=== PATIENT | female | born 1995 | race Caucasian/White ===

== ENCOUNTER 2019-08-13 18:36 | Inpatient (IN) ==
[2019-08-13 19:51] LABS: Apearance,Urine CLEAR (Clear); Bilirubin,Urine Negative (Negative); Blood, Urine Negative (Negative); Glucose,Urine (UA) Negative (Negative); Ketones,Urine Negative (Negative); Nitrite,Urine Negative (Negative); Protein,Urine Negative; RBC,Urine <1 /HPF (0-4); Squamous Epithelial Cell,Urine Occasional /HPF (0-10); Urine Color Straw (Yellow); Urine Specific Gravity 1.004 (1.001-1.035); Urine Urobilinogen < 2.0 EU/DL (0.2-1.0); WBC,Urine 2 /HPF (0-6)
[2019-08-13] MEDS: LACTATED RINGERS 1,000 ML IV SCH (20:22)
[2019-08-13] MEDS ORDERED: ALUMINUM/MAGNES/SIMETH MAX STR 30 ML UDCUP PO PRN (20:24)
[2019-08-13] MEDS ORDERED: BUTORPHANOL 2 MG/ML VIAL IV PRN (21:54)
[2019-08-13] MEDS ORDERED: ONDANSETRON 4 MG/2 ML VIAL IV PRN (21:54)
[2019-08-13] MEDS ORDERED: NALOXONE 0.4 MG/ML VIAL IV PRN (21:56)
[2019-08-13] MEDS ORDERED: hydrOXYzine HCL 25 MG/1 ML VIAL IM PRN (21:56)
[2019-08-13] MEDS ORDERED: CITRIC ACID/SODIUM CITRATE 30 ML UDCUP PO ONE (21:56)
[2019-08-13] MEDS ORDERED: FAMOTIDINE 20 MG/2 ML VIAL IV ONE (21:56)
[2019-08-13] MEDS ORDERED: PROMETHAZINE 25 MG/1 ML VIAL IM ONE (21:56)
[2019-08-13] MEDS ORDERED: ePHEDrine 50 MG/ML AMP IV PRN (21:56)
[2019-08-13] MEDS ORDERED: LACTATED RINGERS 1,000 ML IV ONE (21:56)
[2019-08-13] MEDS ORDERED: diphenhydrAMINE 50 MG/1 ML VIAL IV PRN ×2 (21:56)
[2019-08-13] MEDS ORDERED: LACTATED RINGERS 1,000 ML IV SCH (22:00)
[2019-08-13] MEDS ORDERED: fentaNYL 2 MCG/ROPIV 0.2% EPID 100 ML EPIDURAL SCH (22:00)
[2019-08-13 22:24] LABS: Basophils # 0.1 10*3/uL (0.0-0.2); Basophils % 0.4 % (0.0-0.8); Eosinophils # 0.1 10*3/uL (0.0-0.87); Eosinophils % 0.6 % (0.00-10.9); Hematocrit 27.6 VOL% (35.7-47.0); Hemoglobin 8.6 GM/DL (12.0-16.0); Immature Granulocytes % 1.5 %; Lymphocytes # 2.2 10*3/uL (1.4-4.0); Lymphocytes % 16.8 % (21.3-54.2); Mean Corpuscular HGB Conc 31.2 GM/DL (32-36); Mean Corpuscular Volume 81.9 FL (87-102); Mean Platelet Volume 10.5 FL (9.6-12.0); Monocytes % 7.5 % (1.7-12.7); Neutrophils % 73.2 % (38.7-73.9); Platelet Count 322 T/CUMM (130-400); Red Blood Count 3.37 MC/CUMM (3.8-5.5); White Blood Count 13.4 T/CUMM (4-12)
[2019-08-13 22:47] LABS: Alanine Aminotransferase 10 U/L (13-56); Albumin 2.5 G/DL (3.4-5.0); Alkaline Phosphatase 158 U/L (45-117); Aspartate Amino Transferase 13 U/L (0-37); Bilirubin,Total < 0.39 MG/DL (0.2-1.0); Blood Urea Nitrogen 4 MG/DL (7-18); Calcium 8.6 MG/DL (8.5-10.1); Estimated Glom Filtration Rate 128 ML/MIN; Glucose 79 MG/DL (74-106); Osmolality,Calculated 265.1 MOS/KG (273-304); Total Protein 6.5 G/DL (6.4-8.3)
[2019-08-14 00:44] LABS: Apearance,Urine CLEAR (Clear); Bilirubin,Urine Negative (Negative); Blood, Urine Negative (Negative); Glucose,Urine (UA) Negative (Negative); Ketones,Urine Negative (Negative); Nitrite,Urine Negative (Negative); Protein,Urine Negative; Urine Color Straw (Yellow); Urine Specific Gravity 1.005 (1.001-1.035); Urine Urobilinogen < 2.0 EU/DL (0.2-1.0)
[2019-08-14] MEDS: LACTATED RINGERS 1,000 ML IV SCH (01:46)
[2019-08-14] MEDS ORDERED: OXYTOCIN/LR 20 UNIT/1,000 ML BAG IV ONE ×3 (07:57→11:34)
[2019-08-14] MEDS: OXYTOCIN/LR 20 UNIT/1,000 ML BAG IV SCH (08:03)
[2019-08-14] MEDS ORDERED: OXYTOCIN 10 UNIT/ML VIAL ONE (09:26)
[2019-08-14] MEDS ORDERED: OXYTOCIN 10 UNIT/ML VIAL IV ONE (11:19)
[2019-08-14] MEDS ORDERED: IBUPROFEN 800 MG TABLET PO PRN (12:00)
[2019-08-14] MEDS ORDERED: ACETAMINOPHEN 325 MG TABLET PO PRN (15:33)
[2019-08-14] MEDS ORDERED: MEASLES/MUMPS/RUBELLA VACCINE 0.5 ML VIAL SUBCUT ONE (15:33)
[2019-08-14] MEDS ORDERED: RHO(D) IMMUNE GLOBULIN 300 MCG SYRINGE IM ONE (15:33)
[2019-08-14] MEDS ORDERED: HYDROCORTISONE 2.5% RECTAL CREAM 30 GM TUBE TOP PRN (15:33)
[2019-08-14] MEDS ORDERED: BENZOCAINE 20%/MENTHOL 0.5% SPRAY 56 GM CAN TOP PRN (15:33)
[2019-08-14] MEDS ORDERED: WITCH HAZEL PADS 100/JAR TOP PRN (15:33)
[2019-08-14] MEDS ORDERED: LANOLIN 50% CREAM 0.3 OZ TUBE TOP PRN (15:33)
[2019-08-14] MEDS ORDERED: BISACODYL 10 MG SUPP RECTAL PRN (15:33)
[2019-08-14] MEDS ORDERED: DIPH/TET/ACEL PERT BOOSTER VACCINE 0.5 ML VIAL IM ONE (15:33)
[2019-08-14] MEDS: KETOROLAC 30 MG/1 ML VIAL IV SCH ×2 (15:45→21:19)
[2019-08-14] MEDS: DOCUSATE SODIUM 100 MG CAPSULE PO SCH (21:13)
[2019-08-15] MEDS: KETOROLAC 30 MG/1 ML VIAL IV SCH (04:37)
[2019-08-15 05:41] LABS: Basophils # 0.1 10*3/uL (0.0-0.2); Basophils % 0.3 % (0.0-0.8); Eosinophils # 0.1 10*3/uL (0.0-0.87); Eosinophils % 0.7 % (0.00-10.9); Hematocrit 24.9 VOL% (35.7-47.0); Hemoglobin 7.7 GM/DL (12.0-16.0); Immature Granulocytes % 1.4 %; Immature Granulocytes Absolute 0.25 #; Lymphocytes # 2.4 10*3/uL (1.4-4.0); Lymphocytes % 13.9 % (21.3-54.2); Mean Corpuscular HGB Conc 30.9 GM/DL (32-36); Mean Corpuscular Volume 81.6 FL (87-102); Mean Platelet Volume 10.8 FL (9.6-12.0); Monocytes % 7.1 % (1.7-12.7); Neutrophils % 76.6 % (38.7-73.9); Platelet Count 285 T/CUMM (130-400); Red Blood Count 3.05 MC/CUMM (3.8-5.5); Red Cell Distribution Width 15.2 % (9.3-17.3); White Blood Count 17.5 T/CUMM (4-12)
[2019-08-15] MEDS: ACETAMINOPHEN/CODEINE 300-30 MG TABLET PO PRN ×2 (08:22→16:03)
[2019-08-15] MEDS: OXYTOCIN/LR 20 UNIT/1,000 ML BAG IV SCH (08:52)
[2019-08-15] MEDS ORDERED: INFLUENZA VIRUS VACCINE 0.5 ML SYRINGE IM ONE (09:00)
[2019-08-15] MEDS: FERROUS SULFATE ER 140 MG TABLET PO SCH (09:57)
[2019-08-15] MEDS: IBUPROFEN 800 MG TABLET PO SCH ×2 (10:38→18:14)
[2019-08-15] MEDS: DOCUSATE SODIUM 100 MG CAPSULE PO SCH ×2 (10:38→21:29)
[2019-08-15] MEDS ORDERED: RHO(D) IMMUNE GLOBULIN 300 MCG SYRINGE IM ONE (17:36)
[2019-08-16] MEDS: IBUPROFEN 800 MG TABLET PO SCH ×2 (04:06→13:11)
[2019-08-16] MEDS: ACETAMINOPHEN/CODEINE 300-30 MG TABLET PO PRN (05:50)
[2019-08-16 10:08] VITALS: BP 121/80
[2019-08-16] MEDS: DOCUSATE SODIUM 100 MG CAPSULE PO SCH (10:45)
[2019-08-16] MEDS: FERROUS SULFATE ER 140 MG TABLET PO SCH (10:45)
[2019-08-16] MEDS ORDERED: INFLUENZA VIRUS VACCINE 0.5 ML SYRINGE IM ONE (12:59)
== END 2019-08-16 13:30 | disposition home or self-care (01) | DRG 560 ==
LOC: N.LDOUT 18:36 → N.LD 18:43 → N.OB 08-14 14:30
PROVIDERS: ADMIT Obstetrics & Gynecology; ATTEND Obstetrics & Gynecology